=== PATIENT | male | born 1975 | race Two or more races ===

== ENCOUNTER 2018-05-11 07:11 | Day surgery (SDC) | payer OTHER ==
[2018-05-11] MEDS ORDERED: PERCOCET 5-3251 EACH PO (12:09)
[2018-05-11] MEDS ORDERED: NEURONTIN300 MG PO (12:09)
[2018-05-11] MEDS ORDERED: COLACE100 MG PO (12:09)
== END 2018-05-11 15:15 | disposition home or self-care (01) ==
LOC: CIR.AMB 07:11
DX: K64.8 Other hemorrhoids (principal)